=== PATIENT | female | born 1990 | race American Indian/Alaskan Native ===

== ENCOUNTER 2018-11-11 18:16 | Emergency (ER) | payer OTHER ==
--- NOTE | 2018-11-11 20:02 | XRay Report ---
PROCEDURE: XR FINGER(S) 2+V LT TECHNIQUE: Left fourth digit 2 views HISTORY: left 4th digit injury/pain COMPARISONS: FINDINGS: No acute fracture identified. Joint spaces are within normal limits. No radiopaque foreign bodies are observed. IMPRESSION: Negative no acute abnormality seen. This document is electronically signed by Clarence Lyles MD., Nov 11 2018 08:00:10 PM ET
[2018-11-11] MEDS ORDERED: TYLENOL PO ONE (22:22)
[2018-11-11] MEDS ORDERED: TYLENOL ONE (22:24)
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
[2018-11-11 23:09] VITALS: BP 112/68
== END 2018-11-11 22:55 | disposition home or self-care (01) ==
LOC: ED 18:16
DX: S63.635A Sprain of interphalangeal joint of left ring finger, initial encounter (principal); F17.200 Nicotine dependence, unspecified, uncomplicated; Z88.1 Allergy status to other antibiotic agents; Z88.2 Allergy status to sulfonamides; W23.0XXA Caught, crushed, jammed, or pinched between moving objects, initial encounter; Y93.89 Activity, other specified; Y92.009 Unspecified place in unspecified non-institutional (private) residence as the place of occurrence of the external cause; Y99.8 Other external cause status